=== PATIENT | male | born 1965 | race Caucasian/White ===

== ENCOUNTER 2019-07-14 13:48 | Emergency (ER) | payer MEDICARE ==
[~2019-07-14] VITALS: Ht 188 cm; Wt 120.5 kg
[2019-07-14 13:53] VITALS: BP 184/93
== END 2019-07-14 15:13 | disposition home or self-care (01) ==
LOC: ER 13:49
DX: M76.61 Achilles tendinitis, right leg (principal); G64 Other disorders of peripheral nervous system
CPT/HCPCS: 99284

== ENCOUNTER 2019-08-04 09:40 | Emergency (ER) | payer MEDICARE ==
[~2019-08-04] VITALS: Ht 185.4 cm; Wt 119.0 kg
--- NOTE | 2019-08-04 10:40 | NUR ---
US at bedside
[2019-08-04 11:17] VITALS: BP 172/99
== END 2019-08-04 11:37 | disposition home or self-care (01) ==
LOC: ER 09:40
DX: N50.89 Other specified disorders of the male genital organs (principal)
CPT/HCPCS: 76870; 99284

== ENCOUNTER 2019-09-03 18:50 | Emergency (ER) | payer MEDICARE ==
[~2019-09-03] VITALS: Ht 185.4 cm; Wt 120.5 kg
--- NOTE | 2019-09-03 19:20 | NUR ---
Patient sitting comfortably on gurney, reports intermitent chest tightness and wheezing. He also reports lips are blue (look purple to me) lately. Has a history of asthma
[2019-09-03 19:28] LABS: BASOPHILS # (AUTO) 0.1 X10'3 (0-0.2); EOSINOPHILS # (AUTO) 0.3 X10'3 (0-0.9); EOSINOPHILS % (AUTO) 3.4 % (0-6); HEMATOCRIT 47.4 % (42.0-52.0); HEMOGLOBIN 16.1 g/dl (14.0-17.9); LYMPHOCYTES # (AUTO) 2.5 X10'3 (1.1-4.8); LYMPHOCYTES % (AUTO) 25.8 % (21-51); MEAN CORPUSCULAR HGB CONC 33.8 g/dL (33.0-36.5); MEAN CORPUSCULAR VOLUME 88.7 FL (78-98); MEAN PLATELET VOLUME 8.3 FL (7.4-10.4); MONOCYTES # (AUTO) 0.9 X10'3 (0-0.9); MONOCYTES % (AUTO) 9.1 % (2-12); NEUTROPHILS % (AUTO) 60.7 % (42-75); PLATELET COUNT 382 X10'3 (140-440); RED BLOOD COUNT 5.35 X10'6 (4.70-6.10); RED CELL DISTRIBUTION WIDTH 13.9 % (11.5-14.5); WHITE BLOOD COUNT 9.8 X10'3 (4.5-11.0)
[2019-09-03 19:36] LABS: ALANINE AMINOTRANSFERASE 48 U/L (12-78); ALBUMIN 3.7 G/DL (3.4-5.0); ALBUMIN/GLOBULIN RATIO 0.9 (1.1-1.5); ALKALINE PHOSPHATASE 83 IU/L (46-116); ANION GAP 8 (8-16); ASPARTATE AMINO TRANSFERASE 27 U/L (10-37); BILIRUBIN,TOTAL 1.6 MG/DL (0.1-1.0); BLOOD UREA NITROGEN 16 MG/DL (7-18); BUN/CREATININE RATIO 15.8 (5.4-32.0); CALCIUM 9.1 MG/DL (8.5-10.1); CHLORIDE 105 MMOL/L (99-107); CREATININE 1.01 MG/DL (0.60-1.10); GLUCOSE 109 MG/DL (70-104); POTASSIUM 3.6 MMOL/L (3.5-5.1); SODIUM 140 MMOL/L (135-145); TOTAL CARBON DIOXIDE 27.4 MMOL/L (24-32); TOTAL PROTEIN 7.6 G/DL (6.4-8.2); eGFR 76 ML/MIN
[2019-09-03 19:40] LABS: D-DIMER 0.31 MG/L FEU (0-0.50)
--- NOTE | 2019-09-03 20:13 | NUR ---
Brought patient a blanket, waiting on mammography technician for testing.
--- NOTE | 2019-09-03 20:48 | NUR ---
Patient with dialysis tech.
--- NOTE | 2019-09-03 21:49 | NUR ---
Patient just finished with ECHO.
[2019-09-03 22:49] VITALS: BP 161/112
== END 2019-09-03 22:52 | disposition home or self-care (01) ==
LOC: ER 18:52
DX: J45.909 Unspecified asthma, uncomplicated (principal); I10 Essential (primary) hypertension; Z98.890 Other specified postprocedural states; Z88.8 Allergy status to other drugs, medicaments and biological substances
CPT/HCPCS: 36415; 71045; 80053; 83880; 84484; 85025; 85379; 93005; 93306; 99285

== ENCOUNTER 2021-07-22 11:53 | Emergency (ER) | payer MEDICARE, MEDICAID, OTHER ==
[~2021-07-22] VITALS: Ht 185.4 cm; Wt 134.1 kg
[~2021-07-22 11:53] MED LIST: ACET325C6 PO; ALBU18HF2 INH; ALBU6.7H9 INH; ALBU8HFA PO; BENZ-16 PO; LISI20TA28 PO; VITA400T10 PO
[2021-07-22 12:30] VITALS: BP 172/101
[2021-07-22] MEDS ORDERED: ORPH100T2 PO (12:47)
== END 2021-07-22 13:30 | disposition home or self-care (01) ==
LOC: ER 11:54
DX: S13.4XXA Sprain of ligaments of cervical spine, initial encounter (principal); S16.1XXA Strain of muscle, fascia and tendon at neck level, initial encounter; R07.89 Other chest pain; R51.9 Headache, unspecified; M25.512 Pain in left shoulder; M25.511 Pain in right shoulder; I10 Essential (primary) hypertension; J45.909 Unspecified asthma, uncomplicated; Z88.7 Allergy status to serum and vaccine; Z88.1 Allergy status to other antibiotic agents; Z79.899 Other long term (current) drug therapy; V89.2XXA Person injured in unspecified motor-vehicle accident, traffic, initial encounter; Y93.89 Activity, other specified; Y92.89 Other specified places as the place of occurrence of the external cause; Y99.8 Other external cause status
CPT/HCPCS: 99283

== ENCOUNTER 2022-01-28 14:56 | Emergency (ER) | payer MEDICARE, MEDICAID ==
[~2022-01-28] VITALS: Ht 185.4 cm; Wt 132.9 kg
[~2022-01-28 14:56] MED LIST changes: +ALBU6.7H14 INH; -ALBU6.7H9 INH; +ORPH100T2 PO
[2022-01-28 15:17] VITALS: BP 180/85
[2022-01-28] MEDS ORDERED: ketorolac trometh. 30mg/ml inj. IM ONE (16:00)
[2022-01-28] MEDS ORDERED: OXYC-658 PO (18:59)
[2022-01-28] MEDS ORDERED: MELO-102 PO (18:59)
== END 2022-01-28 19:06 | disposition home or self-care (01) ==
LOC: ER 14:56
DX: M54.59 Other low back pain (principal); G89.29 Other chronic pain; M54.9 Dorsalgia, unspecified; I10 Essential (primary) hypertension; J45.909 Unspecified asthma, uncomplicated; Z79.899 Other long term (current) drug therapy
CPT/HCPCS: 96372; 99283; J1885

== ENCOUNTER 2024-01-06 21:25 | Emergency (ER) | payer MEDICARE, MEDICAID ==
[~2024-01-06] VITALS: Ht 185.4 cm; Wt 138.6 kg
[~2024-01-06 21:25] MED LIST changes: +MELO-102 PO; -ORPH100T2 PO; +ORPH100T4 PO
[2024-01-06 21:28] VITALS: BP 169/89; PULSE 98; TEMP 98.7; O2SAT 98
[2024-01-06 22:54] VITALS: RESP 20
[2024-01-06] MEDS: HYDROcodone/acetaminophen 10/325mg tab PO ONE (22:54)
== END 2024-01-06 23:02 | disposition home or self-care (01) ==
LOC: ER 21:26
DX: M25.461 Effusion, right knee (principal); M25.561 Pain in right knee; M89.9 Disorder of bone, unspecified; I10 Essential (primary) hypertension; J45.909 Unspecified asthma, uncomplicated; Z88.7 Allergy status to serum and vaccine; Z79.899 Other long term (current) drug therapy; Z79.2 Long term (current) use of antibiotics
CPT/HCPCS: 73564; 73700; 99284

== ENCOUNTER 2024-10-19 07:56 | Outpatient (CLI) | payer MEDICARE, MEDICAID ==
[~2024-10-19 07:56] MED LIST changes: -ACET325C6 PO; +ALBU18HF2; -ALBU18HF2 INH; -ALBU6.7H14 INH; -ALBU8HFA PO; -BENZ-16 PO; +DICL50TA8 PO; +FURO40TA4 PO; -LISI20TA28 PO; -MELO-102 PO; +METO-384 PO; -ORPH100T4 PO; +SEMA0.253 SUBCUT; +SPIR25TA5 PO; +TAMS-55; +TIZA4TAB11 PO; -VITA400T10 PO
[2024-10-19] MEDS ORDERED: CHOL5000 PO (15:47)
[2024-10-19] MEDS ORDERED: HYDR-3972 PO (15:47)
[2024-10-31] MEDS ORDERED: CHOL100046 PO (12:29)
== END 2024-10-19 23:00 | disposition home or self-care (01) ==
LOC: RAD 07:56
PROVIDERS: ATTEND Orthopaedic Surgery
DX: Z01.818 Encounter for other preprocedural examination (principal); I51.7 Cardiomegaly; I45.10 Unspecified right bundle-branch block
CPT/HCPCS: 36415; 80053; 83036; 85025; 87081; 93005

== ENCOUNTER 2025-01-25 07:26 | Emergency (ER) | payer MEDICARE, MEDICAID ==
[~2025-01-25] VITALS: Ht 185.4 cm; Wt 145.1 kg
[~2025-01-25 07:26] MED LIST changes: +CHOL100046 PO; -DICL50TA8 PO; +HYDR-3972 PO; -TIZA4TAB11 PO
--- NOTE | 2025-01-25 07:49 | Physician Documentation ---
History of Present Illness General Chief Complaint: Cold, cough & congestion Stated Complaint: COLD SYMPTOMS Time Seen by MD: 07:41 OK to notify your PCP?: No Primary Medical Doctor: Dr. Hough Source: patient Mode of Arrival: POV, Ambulatory Exam Limitations: no limitations History of Present Illness Initial Comments Patient is a 59-year-old male with a history of high blood pressure who complains of shortness of breath cough wheezes for the last six days. Patient states he has been taking Bactrim at home but ran out of Bactrim after five days of treatment. The patient states he has been short of breath he has been coughing up white and green sputum. He states his symptoms has been persistent. Denies any chest pain. Patient states he has been followed by Cardiology denies having history of congestive heart failure. He states he has not been taking his Lasix because he has to go upstairs go to the bathroom. The patient states he is a nonsmoker he also states that he uses an inhaler. Medication Reconciliation Allergies: Coded Allergies: Influenza Virus Vaccines (Unverified Allergy, Severe, ANANPHYLAXIS, ) ANAPHALYXIS metronidazole (Verified Allergy, Severe, anaphylaxis, 09/03/19) Scheduled Cholecalciferol (Vitamin D3) (Vitamin D3), 1 CAP PO DAILY, (Reported) Doxycycline Monohydrate (Doxycycline Monohydrate), 100 MG PO BID Furosemide (Furosemide), 1 TAB PO DAILY, (Reported) Metoprolol Succinate (Metoprolol Succinate), 1 TAB PO DAILY, (Reported) Semaglutide (Wegovy), 0.25 MG SUBCUT Q7D, (Reported) Spironolactone (Spironolactone), 1 TAB PO DAILY, (Reported) Tamsulosin Hcl* (Flomax*), 1 CAP DAILY, (Reported) Scheduled PRN Albuterol Sulfate (Ventolin Hfa), 1 PUFF PRN PRN for allergies, (Reported) Hydrocodone Bit/Acetaminophen (Hydrocodon-Acetaminophn 10-325 tablet), 1 TAB PO Q4H PRN for pain, (Reported) Past Medical History Past Medical History: Hypertension, Asthma Past Surgical History: abdominal surgery Drug Use: none Lives In: Home Review of Systems All Other Systems at this time: Reviewed and Negative Physical Exam Physical Exam Vital Signs: RN Vital Signs have been reviewed: Yes, Temperature: 98.8, Source: Oral, Heart Rate: 89, Respiratory Rate: 16, BP: 166/93, Pulse Oximetry: 98, Weight: 145.100 Oxygen Flow Rate: 0 Pulse Oximetry Reflects: adequate oxygenation Physical Exam VITALS: Reviewed and as above. GENERAL: Alert, no apparent distress. HEENT: Normocephalic, atraumatic, PERRL, EOMI, dry mucosa, no erythema RESPIRATORY: Bilateral diminished breath sounds with wheezes and rhonchi bilaterally CHEST: No accessory muscle use, no retractions CV: Regular rate, rhythm, no edema, no murmur, No: JVD GI: Soft, non-tender, bowels sounds present, no rebound, guarding, or rigidity BACK: No CVA tenderness, or swelling MUSCULOSKELETAL: No deformities, no edema SKIN: Warm and dry, no rash NEURO: Oriented x4, No motor or sensory deficit PSYCH: Normal mood and affect, no agitation Progress Results/Orders Reviewed/noted all lab results: Yes Results/Orders Orders - SHANA VALLES MD Chest,Two Views (01/25/25 07:43) Saline Lock (01/25/25 08:04) Monitor (01/25/25 08:04) Svn Treatment (01/25/25 ) Cult Sputum + Gram Stain (01/25/25 08:46) Completed Orders - SHANA VALLES MD Chest,Two Views (01/25/25 07:43) Cbc/Diff (01/25/25 08:04) Electrocardiogram (01/25/25 08:04) PBNP (01/25/25 08:04) BMP (01/25/25 08:04) Hs Troponin I W Calculations (01/25/25 08:04) Dexamethasone Inj (Decadron 10mg/Ml Inj) (01/25/25 08:04) Ceftriaxone 2gm/D5w 50ml Bag (Rocephin 2 (01/25/25 08:05) Ipratropium/Albuterol Nebule (Ipratrop/A (01/25/25 08:15) Azithromycin Tablet (Zithromax Tablet) (01/25/25 08:55) Medications Received in ER Medications (Trade) Dose Ordered Sig/Vasu Route PRN Reason Start Time Stop Time Status Last Admin Dose Admin (Decadron 10mg/ ml inj) 10 mg ONCE STAT IV 01/25/25 08:04 01/25/25 08:11 DC 01/25/25 08:49 10 MG Ceftriaxone Sodium/Dextrose 50 ml @ 100 mls/hr ONCE ONCE IV 01/25/25 08:05 01/25/25 08:34 DC 01/25/25 08:49 100 MLS/HR (ipratrop/ albuterol 0.5-3(2.5) MG/3ml nebule) 3 ml ONCE ONCE NEB 01/25/25 08:15 01/25/25 08:16 DC 01/25/25 08:30 3 ML (Zithromax tablet) 500 mg ONCE ONCE PO 01/25/25 08:55 01/25/25 08:56 DC 01/25/25 09:18 500 MG Vital Signs 01/25/25 01/25/25 01/25/25 01/25/25 07:30 07:42 07:42 08:28 Temp 98.8 98.8 98.8 Pulse 93 89 87 Resp 20 16 15 B/P (MAP) 173/102 166/93 (117) 162/93 (116) Pulse Ox 98 98 95 O2 Flow Rate 0 0 0 01/25/25 01/25/25 01/25/25 08:33 08:41 09:22 Pulse 92 91 90 Resp 20 20 18 B/P (MAP) 153/82 Pulse Ox 95 97 93 O2 Delivery Room Air* Room Air* O2 Flow Rate 0 0 FiO2 21 21 Laboratory Tests Test 01/25/25 08:21 White Blood Count 8.9 Red Blood Count 4.64 L Hemoglobin 13.8 L Hematocrit 40.5 L Mean Corpuscular Volume 87.2 Mean Corpuscular Hemoglobin 29.7 Mean Corpuscular Hemoglobin Concent 34.0 Red Cell Distribution Width 13.9 Platelet Count 436 Mean Platelet Volume 7.9 Neutrophils (%) (Auto) 58.6 Lymphocytes (%) (Auto) 25.4 Monocytes (%) (Auto) 9.1 Eosinophils (%) (Auto) 5.6 Basophils (%) (Auto) 1.3 H Neutrophils # (Auto) 5.2 Lymphocytes # (Auto) 2.3 Monocytes # (Auto) 0.8 Eosinophils # (Auto) 0.5 Basophils # (Auto) 0.1 CBC Comment Sodium Level 142 Potassium Level 4.2 Chloride Level 106 Carbon Dioxide Level 25.4 Anion Gap 11 Blood Urea Nitrogen 13 Creatinine 0.96 Estimated GFR/1.73 m2 80 BUN/Creatinine Ratio 13.5 Glucose Level 105 H Calcium Level 9.0 Troponin I High Sensitivity 14 Pro-B-Type Natriuretic Peptide 99 Albumin 2.9 L Chemistry Comments Microbiology Date/Time Source Procedure Growth Status 01/25/25 08:45 Sputum Respiratory Culture - Preliminary Resulted EKG/XRAY/CT/US/VASC/MRI Chest X-Ray : Additional Comments Patient: RAFAEL TAYLOR Medical Record: [id number] [facility] : 1965, Age: 59 Sex: Male Location: ER Patient Status: REG ER Service Date/Time: 01/25/25742 Ordering Physician: SHANA VALLES MD Exam: CHEST,TWO VIEWS DI CHEST,TWO VIEWS, HISTORY: cough COMPARISON: CHEST,SINGLE VIEW on DOS: 09/03/19 CHEST,SINGLE VIEW on DOS: 09/03/19 TECHNICAL DATA: 2 view of the chest was obtained. FINDINGS: Lines and tubes: None Cardiomediastinal silhouette: normal Pulmonary vasculature: normal Lung expansion: normal Lung airspace: Left basilar airspace opacity likely from atelectasis. Lung interstitium: normal Pleura: normal Pneumothorax: no Bones: Unremarkable Other: no IMPRESSION: Left basilar airspace opacity likely from atelectasis. Electronically Signed by:BILL NOVOA MD Date & Time: 01/25/25805 Dictated by: BILL NOVOA MD Dictation date and time: 01/25/25805 Primary Care Provider: NO PRIMARY CARE PROVIDER cc: SHANA VALLES MD ~ Medical Decision Making Findings The patient's 12 lead EKG demonstrates a sinus rhythm rate of 85 with a normal axis and nonspecific ST abnormalities and a slight interventricular conduction day delay. The patient has a normal axis the interpretation is an abnormal EKG time of interpretation at 8:20 a.m.. Patient is a 59-year-old male who was been having shortness of breath over last week and was self medicating with Bactrim at home he states that he has been using inhalers in the past as well. The patient's chest x-ray does not demonstrate any obvious pneumonia. The patient's labs are unremarkable. Patient has no oxygen requirement he did not receive a breathing treatment and a dose of Decadron here in the emergency department. The patient was given a dose of ceftriaxone here in the emergency department the patient will be discharged on doxycycline. Patient has been advised to return for significant worsening of his symptoms. The patient's pulse oximetry was interpreted as normal and adequate. Departure Time of Disposition: 09:11 Disposition: 01 HOME / SELF CARE / HOMELESS Impression: Primary Impression: Acute bronchitis Qualified Codes: J20.9 - Acute bronchitis, unspecified Condition: Stable Discharge Instructions: Acute Bronchitis, Adult Additional Instructions: Take antibiotics as prescribed. Follow up with your regular doctor in the next week. Return to the ER for worsening symptoms or other concerns. Prescriptions Doxycycline Monohydrate (Doxycycline Monohydrate) 100 Mg Capsule 100 MG PO BID, #14 CAP may sub doxycycline hyclate or azithromycin z-pack as prescribed Prov: SHANA VALLES MD 01/25/25 Education Educated: Patient Educated regarding: diagnosis, treatment, need for follow up Signature Scribe Signature: Scribed for Shana Valles MD by Maryuri Loredo . 01/25/25 09:11 Attestation: The note accurately reflects work and decisions made by me.Shana Valles MD 01/25/25 15:43 SHANA VALLES MD Jan 25, 2025 07:49 MARYURI RODRÍGUEZ Jan 25, 2025 09:12
--- NOTE | 2025-01-25 08:09 | RADIOLOGY REPORT ---
DI CHEST,TWO VIEWS, HISTORY: cough COMPARISON: CHEST,SINGLE VIEW on DOS: 09/03/19 CHEST,SINGLE VIEW on DOS: 09/03/19 TECHNICAL DATA: 2 view of the chest was obtained. FINDINGS: Lines and tubes: None Cardiomediastinal silhouette: normal Pulmonary vasculature: normal Lung expansion: normal Lung airspace: Left basilar airspace opacity likely from atelectasis. Lung interstitium: normal Pleura: normal Pneumothorax: no Bones: Unremarkable Other: no IMPRESSION: Left basilar airspace opacity likely from atelectasis.
--- NOTE | 2025-01-25 08:23 | ELECTROCARDIOGRAPH REPORT ---
[facility] Test Date: 2025-01-25 Test Time: 08:20:26 Pat Name: RAFAEL TAYLOR Department: [facility]- Patient ID: [id number] Room: Gender: M Director Of [employer] Guest Experience: : 1965 Requested By: SHANA VICENTE Order Number: [id number] Reading MD: Measurements Intervals Cade Rate: 85 P: 65 IA: 153 QRS: 59 QRSD: 124 T: 46 QT: 397 QTc: 472 Interpretive Statements Sinus rhythm Consider left atrial enlargement IVCD, consider atypical RBBB Please click the below link to view image of tracing.
[2025-01-25 08:28] VITALS: TEMP 98.8
[2025-01-25] MEDS: ipratropium/albuterol 3ml nebule NEB ONE (08:30)
[2025-01-25 08:33] VITALS: PULSE 92; RESP 20; O2SAT 95
[2025-01-25 08:33] LABS: MEAN PLATELET VOLUME 7.9 FL (7.4-10.4); RED CELL DISTRIBUTION WIDTH 13.9 % (11.5-14.5)
[2025-01-25 08:41] VITALS: PULSE 91; RESP 20; O2SAT 97
[2025-01-25] MEDS: dexamethasone sod phosphate 10mg/ml inj IV STA (08:49)
[2025-01-25] MEDS: CefTRIAXone 2gm/D5W 50ml BAG 50 ML IV ONE (08:49)
[2025-01-25 08:53] LABS: CREATININE 0.96 MG/DL (0.60-1.10); PRO BRAIN NATRIURETIC PEPTIDE 99 PG/ML (0-125); TOTAL CARBON DIOXIDE 25.4 MMOL/L (24-32); eCRCL 91 ML/MIN; eGFR 80 ML/MIN
[2025-01-25] MEDS ORDERED: DOXY100C43 PO (09:07)
[2025-01-25 09:22] VITALS: BP 153/82; PULSE 90; RESP 18; O2SAT 93
== END 2025-01-25 09:24 | disposition home or self-care (01) ==
LOC: ER 07:27
DX: J20.9 Acute bronchitis, unspecified (principal); I10 Essential (primary) hypertension; J45.909 Unspecified asthma, uncomplicated; Z88.7 Allergy status to serum and vaccine; Z88.8 Allergy status to other drugs, medicaments and biological substances; Z91.148 Patient's other noncompliance with medication regimen for other reason
CPT/HCPCS: 36415; 71046; 80048; 83880; 84484; 85025; 87070; 93005; 94640; 96365; 96375; 99285; J0696; J1100; 94760